=== PATIENT | female | born 1955 | race Asian ===

== ENCOUNTER 2017-01-14 06:16 | Day surgery (SDC) | payer OTHER ==
[~2017-01-14] VITALS: Ht 157.5 cm; Wt 68.7 kg
--- NOTE | ~2017-01-14 | OR ---
PATIENT'S NAME: JESSIE PETERSEN [facility] AGE: 61 Y [address] ROOM: [place] [id number] LOCATION: [facility] [place] ADMIT DATE: 01/14/2017 OR/Procedure Report DISCHARGE DATE: FAMILY PHYSICIAN: Pauline Rdz APRN ATTENDING PHYSICIAN: Migel Whitley SURGEON: Adeline Armendariz MD JIRA DEVELOPER: Migel Whitley MD DATE OF PROCEDURE: 01/14/2017 PREOPERATIVE DIAGNOSES: 1. Stress urinary incontinence. 2. Cystocele. 3. Rectocele. POSTOPERATIVE DIAGNOSES: 1. Stress urinary incontinence. 2. Cystocele. 3. Rectocele. PROCEDURE PERFORMED: Midurethral suspension. ANESTHESIA: General. COMPLICATIONS: None. INDICATION FOR PROCEDURE: The patient is a 61-year-old female with genital prolapse including cystocele and rectocele along with stress urinary incontinence. The patient is scheduled to undergo combined surgical repair. DETAILS OF PROCEDURE: After Dr. Whitley opened up the anterior vaginal wall and developed a space into the endopelvic fascia bilaterally, I began my part of the operation. Two small skin incisions were made over the pubic bone bilaterally. Next, the TVT needle was passed through the abdominal incision and through the endopelvic fascia, and out the anterior vaginal wall bilaterally. The Montes was deflated and removed. Cystoscopy was performed with a 70-degree lens which showed that the needle had not penetrated the bladder bilaterally. Following this, Montes catheter was replaced and the mesh was attached to the end of the needles. This was then pulled through. Heavy scissors was used as a spacing device. The sheath was then cut locking the tape in position. The excess was excised at the abdominal wall. At this point, Dr. Whitley continued with his part of the operation. The patient tolerated this part of procedure well. PAT[facility]'S NAME: [facility] AGE: 61 Y [address] ROOM: [place] [id number] LOCATION: [facility] [place] ADMIT DATE: 01/14/2017 OR/Procedure Report DISCHARGE DATE: FAMILY PHYSICIAN: Pauline Rdz APRN ATTENDING PHYSICIAN: Migel Whitley MD UNA JURADO/prema /[id number] CC: MAURILIO Tam MD d: 01/15/17 0105 t: 01/20/17 0902, OPERATIVE SUMMARY
--- NOTE | ~2017-01-14 | OR ---
PATIENT'S NAME: JESSIE PETERSEN [facility] AGE: 61 Y [address] ROOM: [place] [address] [place] [facility] [place]: 01/14/2017 OR/Procedure Report DISCHARGE DATE: FAMILY PHYSICIAN: Pauline Rdz APRN ATTENDING PHYSICIAN: Hillary Whitley SURGEON: Hillary Whitley MD [employer] SPECIALIST: Sri Hays MD. The mid urethral sling was performed by Dr. Armendariz. DATE OF PROCEDURE: 01/14/2017 PREOPERATIVE DIAGNOSES: 1. Cystocele. 2. Rectocele. 3. Possible enterocele. 4. Vaginal prolapse. 5. Stress urinary incontinence. POSTOPERATIVE DIAGNOSES: 1. Cystocele. 2. Rectocele. 3. Possible enterocele. 4. Vaginal prolapse. 5. Stress urinary incontinence. PROCEDURE: Anterior colporrhaphy enterocele repair, posterior colporrhaphy sacrospinous ligament fixation of the vaginal vault and a mid urethral sling procedure. ANESTHESIA: Spinal. ESTIMATED BLOOD LOSS: Approximately 300 mL. DESCRIPTION OF PROCEDURE: The patient was taken to the operating room, under adequate spinal anesthesia, positioned, prepped, and draped in the usual fashion. The apex of the vagina was easily grasped with Mercer clamps and a transverse incision made at the apex. We then undermined the mucosa in the midline from the apex of the vagina out to the urethral meatus using Metzenbaum scissors. The mucosa was divided in the midline as well. We freed up the mucosa from the underlying tissues using sharp and blunt dissection and dissected in the region of the urethra on each side, so that Dr. Armendariz could perform the sling procedure. This was then accomplished and we then opened the enterocele. The cystocele repair was accomplished with side-to- side sutures of 0 Vicryl. We then performed the enterocele repair using pursestring sutures of 0 Vicryl. We then trimmed off excess mucosa and reapproximated the mucosa in the midline with running locked 0 Vicryl. We PATIENT'S NAME: JESSIE PETERSEN [facility] AGE: 61 Y [address] ROOM: [place] [address] [place] [facility] [place]: 01/14/2017 OR/Procedure Report DISCHARGE DATE: FAMILY PHYSICIAN: Pauline Rdz APRN ATTENDING PHYSICIAN: Hillary Whitley then turned our attention posteriorly and a transverse incision was made at the posterior fourchette. We undermined the mucosa in the midline and divided it with Metzenbaum scissors dissecting to the apex of the vagina. The mucosa was freed up from the underlying tissues using sharp and blunt dissection. We dissected to the region of the sacrospinous ligament on each side and passed a ligature of 0 [place]-Ezequiel through the sacrospinous ligament on each side. This was attached to the lateral apex of the vagina and used to support the apex. We then performed the rectocele repair using a running nonlocked 0 Vicryl. The posterior mucosa was then approximated in the midline using a running locked 0 Vicryl. Continued in a running nonlocked fashion to approximate the perineal body, and then in a subcuticular fashion approximating skin edges over the perineal body. Upon completion, all counts were correct and the patient was taken to recovery in good condition. HILLARY WHITLEY MD [facility]HS/modl /[id number] d: 01/14/177 t: 02/10/17 1626, OPERATIVE SUMMARY
[~2017-01-14 06:16] MED LIST: KLOR-CON20 MEQ PO; LIPITOR10 MG PO; LISINOPRIL-HCT1 EACH PO; SINGULAIR10 MG PO; TAB-A-VITE1 EACH PO; TRIAMCINOLONE454 GM TOP; ZYRTEC10 MG PO
[2017-01-14 06:59] LABS: BASOPHIL % 0.7 %; EOSINOPHIL # 0.2 K/uL (0.0-0.5); EOSINOPHIL % 4.7 %; HEMATOCRIT 37.6 % (33.0-46.0); HEMOGLOBIN 12.7 g/dL (10.0-15.0); IMMATURE GRANULOCYTE % 0.2 %; LYMPHOCYTE # 2.1 K/uL (0.8-4.0); LYMPHOCYTE % 48.6 %; MCH 29.9 pg (27.0-34.0); MCHC 33.8 gm/dL (32.0-36.5); MCV 88.5 fl (83.0-98.0); MONOCYTE # 0.4 K/uL (0.0-1.0); MPV 11.2 fl (9.4-12.4); NEUTROPHIL # (ANC) 1.6 K/uL (1.8-7.8); NEUTROPHIL % 36.8 %; NRBC % 0 /100WBC (0-0.00); PLATELET COUNT 196 K/uL (150-450); RBC 4.25 M/uL (3.50-5.50); RDW-CV 11.9 % (11.9-14.6); WBC 4.2 K/uL (4.0-11.0)
--- NOTE | 2017-01-14 16:56 | NUR ---
Significant Event: Patient is alert and oriented x3. VSS and on RA. 2 lap sites to the pubic area with steri-strips. Old bloody drainage noted. Samuels and vag packing in place. Has gone through 1 pad. Packing and samuels to be removed at 7 am. Up with 1pa. Tried getting out of bed late this afternoon and patient was very dizzy and got nauseated. Zofran given at 1555. Relief noted. Tylenol #3 given last at 1637. Percocet given last at 1317. Has had low urine output. IV to the L)FA, fluids infusing. Last post op vs is at 1845. Daughter at the bed side. Has had low urine outputs. Cooperative with cares. Follow up: Monitor urine output, remove samuels and vag packing at 7am on 01/15/17
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
[2017-01-15] MEDS ORDERED: PERCOCET 5-3251 EACH PO (13:04)
--- NOTE | 2017-01-15 18:15 | NUR ---
Significant event: Pt is alert and oriented. VSS. on room air. IV dc'd with no complications. Education given for catheter care, bag care, percocet tabs, after pelvic organ prolapse surgery. Pt and dghtr verbalized understanding. Copies given. Prescriptions given. Copy of hospital dismissal instructions with follow up appts were given. Pt was wheeled to north front door and assisted into vehicle. Cooperative with cares.
== END 2017-01-15 17:30 | disposition disaster alternative care site (69) ==
LOC: GSDC 06:16 → GMSU 06:16 → GSDC 07:00 → GMSU 12:09 → GSDC 01-15 17:30
PROVIDERS: Obstetrics & Gynecology
PROC: 0UQF0ZZ Repair Cul-de-sac, Open Approach (ICD-10-PCS; principal; 2017-01-14)
PROC: 0JQC0ZZ Repair Pelvic Region Subcutaneous Tissue and Fascia, Open Approach (ICD-10-PCS; 2017-01-14)
PROC: 0TQD7ZZ Repair Urethra, Via Natural or Artificial Opening (ICD-10-PCS; 2017-01-14)
PROC: 0TSD0ZZ Reposition Urethra, Open Approach (ICD-10-PCS; 2017-01-14)
DX: N81.4 Uterovaginal prolapse, unspecified (principal); N39.3 Stress incontinence (female) (male); I10 Essential (primary) hypertension; F41.9 Anxiety disorder, unspecified; Z91.040 Latex allergy status; Z90.710 Acquired absence of both cervix and uterus; Z98.890 Other specified postprocedural states; Z79.899 Other long term (current) drug therapy
CPT/HCPCS: C2631; J0690; J2001; J2405; J7120; J7121